=== PATIENT | male | born 1965 | race Caucasian/White ===

== ENCOUNTER → 2017-01-21 | Outpatient (CLI) | payer OTHER ==
[~2017-01-21] MED LIST: FLEXERIL 10 MG10 MG PO; FLONASE ALLER15.8 ML; LOVENOX40 MG/0.4 SC; MOBIC15 MG PO; NEURONTIN 100100 MG PO; NORCO 10-325 T1 EACH PO; PERCOCET 5-3251 EACH PO; POTASSIUM99 M1 PO; REQUIP1 MG PO
== END ==
LOC: KOH-I 14:49
DX: M25.551 Pain in right hip (principal); R93.7 Abnormal findings on diagnostic imaging of other parts of musculoskeletal system
CPT/HCPCS: 73700

== ENCOUNTER → 2017-05-29 | Day surgery (SDC) | payer OTHER ==
[~2017-05-29] VITALS: Ht 182.9 cm; Wt 103.4 kg
== END | disposition home or self-care (01) ==
LOC: OR 08:18
PROVIDERS: Orthopaedic Surgery
PROC: 0SU Lower Joints, Supplement (ICD-10-PCS; principal; 2017-05-29 10:45)
DX: M87.851 Other osteonecrosis, right femur (principal); G47.30 Sleep apnea, unspecified; M19.90 Unspecified osteoarthritis, unspecified site; G89.29 Other chronic pain; F17.210 Nicotine dependence, cigarettes, uncomplicated; Z79.899 Other long term (current) drug therapy
CPT/HCPCS: 73502; 76000; J0690; J1200; J1885; J2250; J2405; J2710; J2795; J3010; J7120